=== PATIENT | female | born 2000 | race Hispanic/Latino ===

== ENCOUNTER 2018-10-02 01:20 | Inpatient (IN) | payer SELFPAY ==
[2018-10-02] MEDS ORDERED: NACL 0.9% 1000 ML 1,000 ML IV ONE ×3 (01:46→12:37)
[2018-10-02 02:01] LABS: Hematocrit 48.3 % (30.3-42.9); Hemoglobin 15.2 gm/dl (10.1-14.3); Mean Corpuscular HGB Conc 31 % (30-34); Mean Corpuscular Volume 90 fl (79-97); Platelet Count 449 K/mm3 (140-440); Red Blood Count 5.39 M/mm3 (3.65-5.03); Red Cell Distribution Width 14.8 % (13.2-15.2)
[2018-10-02 02:21] LABS: Albumin 5.1 g/dL (3.9-5); Calcium 10.5 mg/dL (8.4-10.2)
[2018-10-02] MEDS ORDERED: SUBLIMAZE IV ONE (02:25)
[2018-10-02] MEDS ORDERED: ZOFRAN IV ONE (02:25)
--- NOTE | 2018-10-02 02:32 | Emergency Department Report ---
HPI - General Chief Complaint: Hyperglycemia Time Seen by Provider: 10/02/18 02:20 - [facility] HPI: Room 1 The patient is a 17-year-old female presented with the chief complaint of nausea and vomiting. The patient states this morning she developed intractable nausea and vomiting began to feel dehydrated. Patient complains of soreness to her ribs from frequent vomiting and headache. The patient found to be hyperglycemic earlier today and received 8 units of insulin at 15:00. At 21:00 the patient received another 5 units of insulin but then came to the emergency department. Patient gives her rib pain score of 8/10. Family checked the patient's urine at home and found large ketones Location: [See above] Duration: [See above] Quality: Nausea Severity: [See above] Modifying factors: [see above] Context: [see above] Mode of transportation: [not driving] ED Past Medical Hx - Past Medical History Previous Medical History?: Yes Hx Diabetes: Yes Additional medical history: Hypothyroid - Surgical History Past Surgical History?: No - Family History Family history: no significant - Social History Smoking Status: Never Smoker Substance Use Type: None (denies illicit drug use) ED Review of Systems ROS: Stated complaint: DIABETIC COMPLICATIONS Other details as noted in HPI Constitutional: no symptoms reported Eyes: denies: eye pain ENT: denies: throat pain Respiratory: no symptoms reported Cardiovascular: denies: chest pain Endocrine: other (ketonuria) Gastrointestinal: nausea, vomiting. denies: abdominal pain Genitourinary: denies: dysuria Musculoskeletal: myalgia Neurological: headache Physical Exam - Physical Exam Vital Signs: Vital Signs 10/02/18 01:21 Temperature 98.0 F Pulse Rate 138 H Respiratory 22 Rate Blood Pressure 122/89 O2 Sat by Pulse 99 Oximetry Physical Exam: GENERAL: The patient is well-developed well-nourished female lying on stretcher appearing to be in mild discomfort. [] HEENT: Normocephalic. Atraumatic. Extraocular motions are intact. NECK: Supple. Trachea midline CHEST/LUNGS: Clear to auscultation. There is no respiratory distress noted. HEART/CARDIOVASCULAR: Regular. There is tachycardia. There is no gallop rub or murmur. ABDOMEN: Abdomen is soft, nontender. Patient has normal bowel sounds. There is no abdominal distention. SKIN: There is no rash. There is no edema. There is no diaphoresis. NEURO: The patient is awake, alert, and oriented. The patient is cooperative. The patient has normal speech MUSCULOSKELETAL: There is no evidence of acute injury. ED Course Vital Signs 10/02/18 01:21 Temperature 98.0 F Pulse Rate 138 H Respiratory 22 Rate Blood Pressure 122/89 O2 Sat by Pulse 99 Oximetry - EJ/Peripheral Line Neck R Indications: nurses unable to establis Skin Cleansed in Sterile Fashion: Yes Size: 20 Dressing Placed: Tegaderm Patient Tolerated Procedure: well, no complications ED Medical Decision Making - Lab Data Result diagrams: 10/02/18 01:47 10/02/18 01:47 Laboratory Tests 10/02/18 10/02/18 10/02/18 01:29 01:47 01:47 WBC 22.6 H RBC 5.39 H Hgb 15.2 H Hct 48.3 H MCV 90 MCH 28 MCHC 31 RDW 14.8 Plt Count 449 H Seg Neutrophils % Material Handler VBG pH Sodium 134 L Potassium 5.7 H Chloride 95.0 L Carbon Dioxide 7 L* Anion Gap 39 BUN 20 H Creatinine 1.3 H Estimated GFR 53 BUN/Creatinine Ratio 15 Glucose 376 H POC Glucose 288 H Calcium 10.5 H Total Bilirubin 0.50 AST 17 ALT 28 Alkaline Phosphatase 129 Total Protein 9.5 H Albumin 5.1 H Albumin/Globulin Ratio 1.2 Lipase 72 H HCG, Qual 10/02/18 10/02/18 01:47 01:47 WBC RBC Hgb Hct MCV MCH MCHC RDW Plt Count Seg Neutrophils % VBG pH 7.118 L* Sodium Potassium Chloride Carbon Dioxide Anion Gap BUN Creatinine Estimated GFR BUN/Creatinine Ratio Glucose POC Glucose Calcium Total Bilirubin AST ALT Alkaline Phosphatase Total Protein Albumin Albumin/Globulin Ratio Lipase HCG, Qual Negative - EKG Data -: EKG Interpreted by Me EKG shows normal: sinus rhythm Rate: tachycardia (119 bpm) - EKG Data When compared to previous EKG there are: previous EKG unavailable Interpretation: other (no ischemic changes seen) - Differential Diagnosis DKA, gastritis, Critical care attestation.: If time is entered above; I have spent that time in minutes in the direct care of this critically ill patient, excluding procedure time. ED Disposition Clinical Impression: DKA (diabetic ketoacidoses) Disposition: OP ADMIT IP TO THIS HOSP Is pt being admited?: Yes Does the pt Need Aspirin: No Condition: Serious Instructions: Diabetic Ketoacidosis (ED) Time of Disposition: 02:35 (hospitalist paged (Dr Camacho))
[2018-10-02] MEDS ORDERED: D50W (25GM) Syringe IV PRN ×2 (02:33→07:17)
[2018-10-02] MEDS ORDERED: MORPHINE IV PRN (03:19)
[2018-10-02] MEDS ORDERED: ZOFRAN IV PRN ×2 (03:19→12:36)
[2018-10-02] MEDS ORDERED: SODIUM CHLORIDE FLUSH SYRINGE 10 ML IV PRN (03:19)
[2018-10-02] MEDS ORDERED: TYLENOL PO PRN (03:19)
--- NOTE | 2018-10-02 03:38 | History and Physical Report ---
History of Present Illness Date of examination: 10/02/18 Date of admission: 10/02/2018 Chief complaint: Nausea and vomiting History of present illness: Ms. De Leon is a 17 y.o. female with history of insulin-dependent diabetes and hypothyroidism who presents to [facility] with c/o n/v, headache for the past day. Complains of soreness in her ribs from frequent vomiting. Patient states that around 10 AM yesterday morning she began to experience uncontrollable nausea and vomiting, which was accompanied by headache. She describes her headache as aching and relates that 12/30 . Her family checked her urine at home and it was positive for large ketones. She checked her blood sugar twice, once around 3 PM and again at 9 PM. Both times she was noted to be hyperglycemic and admits to taking sliding scale correction (approximately a total of 12units total). She normally takes 36 units of Lantus every night, but denies taking last night. Her family is present at the bedside and has assisted in history taking. Denies fever, hemoptysis, diarrhea, or recent sick contact Past History Past Medical History: diabetes (insulin-dependent), hypothyroidism Past Surgical History: No surgical history Social history: lives with family Family history: no significant family history Medications and Allergies Allergies Allergy/AdvReac Type Severity Reaction Status Date / Time No Known Allergies Allergy Verified 10/02/18 01:25 Active Meds: Active Medications Acetaminophen (Tylenol) 650 mg PO Q4H PRN PRN Reason: Pain MILD(1-3)/Fever >100.5/ANN Dextrose (D50w (25gm) Syringe) 0 ml IV ONCE PRN PRN Reason: Hypoglycemia Enoxaparin Sodium (Lovenox) 30 mg SUB-Q [facility]DAY [facility] Insulin Human Regular 100 (units/ Sodium Chloride) 100 mls @ 7 mls/hr IV TITR MARQUITA; Protocol Sodium Chloride (Nacl 0.9% 1000 Ml) 1,000 mls @ 200 mls/hr IV DIRECT MARQUITA Morphine Sulfate (Morphine) 2 mg IV Q4H PRN PRN Reason: Pain, Moderate (4-6) Stop: 10/03/18 23:59 Ondansetron HCl (Zofran) 4 mg IV Q8H PRN PRN Reason: Nausea And Vomiting Sodium Chloride (Sodium Chloride Flush Syringe 10 Ml) 10 ml IV BID MARQUITA Sodium Chloride (Sodium Chloride Flush Syringe 10 Ml) 10 ml IV PRN PRN PRN Reason: LINE FLUSH Review of Systems All systems: negative (reviewed and no additional remarkable complaints except as noted below) Constitutional: fatigue, weakness Ears, nose, mouth and throat: headache Gastrointestinal: nausea, vomiting Musculoskeletal: other (soreness to her ribs from uncontrollable vomiting) Exam - Physical Exam Narrative exam: Physical exam General appearance: Present: Mild distress, well-nourished, alert and oriented 3 - EENT Eyes: Present: PERRL, EOM intact ENT: hearing intact, normal dentition - Neck Neck: Present: supple, normal ROM - Respiratory Respiratory effort: Non-labored Respiratory: Clear throughout) - Cardiovascular Heart rate: 119 (bpm) Rhythm: Sinus tachycardia Heart Sounds: Present: S1 & S2. Absent: rub, click - Extremities Extremities: no ischemia, pulses intact, - Peripheral Assessment Peripheral Pulses: within normal limits - Abdominal General gastrointestinal: soft, non-tender, normal bowel sounds - Integumentary Integumentary: Present: warm, dry - Musculoskeletal Musculoskeletal: Able to move all extremities - Psychiatric Psychiatric: cooperative - Constitutional Vitals: Temp Pulse Resp BP Pulse Ox 98.0 F 115 H 20 124/72 100 10/02/18 01:21 10/02/18 03:31 10/02/18 03:31 10/02/18 03:31 10/02/18 03:31 Results - Labs CBC & Chem 7: 10/02/18 01:47 10/02/18 01:47 Labs: Laboratory Last Values WBC 22.6 K/mm3 (4.5-11.0) H 10/02/18 01:47 RBC 5.39 M/mm3 (3.65-5.03) H 10/02/18 01:47 Hgb 15.2 gm/dl (10.1-14.3) H 10/02/18 01:47 Hct 48.3 % (30.3-42.9) H 10/02/18 01:47 MCV 90 fl (79-97) 10/02/18 01:47 MCH 28 pg (28-32) 10/02/18 01:47 MCHC 31 % (30-34) 10/02/18 01:47 RDW 14.8 % (13.2-15.2) 10/02/18 01:47 Plt Count 449 K/mm3 (140-440) H 10/02/18 01:47 Seg Neutrophils % Ecommerce Manager 10/02/18 01:47 VBG pH 7.118 (7.320-7.420) L* 10/02/18 01:47 Sodium 134 mmol/L (137-145) L 10/02/18 01:47 Potassium 5.7 mmol/L (3.6-5.0) H 10/02/18 01:47 Chloride 95.0 mmol/L (98-107) L 10/02/18 01:47 Carbon Dioxide 7 mmol/L (22-30) L* 10/02/18 01:47 39 mmol/L 10/02/18 01:47 BUN 20 mg/dL (7-17) H 10/02/18 01:47 1.3 mg/dL (0.7-1.2) H 10/02/18 01:47 Estimated GFR 53 ml/min 10/02/18 01:47 15 % 10/02/18 01:47 Glucose 376 mg/dL (65-100) H 10/02/18 01:47 POC Glucose 288 (70-105) H 10/02/18 01:29 Calcium 10.5 mg/dL (8.4-10.2) H 10/02/18 01:47 0.50 mg/dL (0.1-1.2) 10/02/18 01:47 AST 17 units/L (5-40) 10/02/18 01:47 ALT 28 units/L (7-56) 10/02/18 01:47 129 units/L (35-129) 10/02/18 01:47 9.5 g/dL (6.3-8.2) H 10/02/18 01:47 5.1 g/dL (3.9-5) H 10/02/18 01:47 1.2 % 10/02/18 01:47 72 units/L (13-60) H 10/02/18 01:47 HCG, Qual Negative (Negative) 10/02/18 01:47 Short CBC 10/02/18 Range/Units 01:47 WBC 22.6 H (4.5-11.0) K/mm3 Hgb 15.2 H (10.1-14.3) gm/dl Hct 48.3 H (30.3-42.9) % Plt Count 449 H (140-440) K/mm3 BMP 10/02/18 01:47 Sodium 134 L Potassium 5.7 H Chloride 95.0 L Carbon Dioxide 7 L* BUN 20 H Creatinine 1.3 H Glucose 376 H Calcium 10.5 H Liver Function 10/02/18 Range/Units 01:47 Total Bilirubin 0.50 (0.1-1.2) mg/dL AST 17 (5-40) units/L ALT 28 (7-56) units/L Alkaline Phosphatase 129 (35-129) units/L Albumin 5.1 H (3.9-5) g/dL - Imaging and Cardiology EKG: image reviewed (sinus tachycardia at 119 bpm) Chest x-ray: report reviewed (no acute cardiopulmonary abnormalities) Assessment and Plan Assessment and plan: Ms. De Leon is a 17 y.o. female with history of insulin-dependent diabetes and hypothyroidism who presents to [facility] with c/o n/v, headache for the past day. Complains of soreness in her ribs from frequent vomiting. She is an established patient of [facility]. Patient is found to be in diabetic ketoacidosis, pH 7.11, anion gap 39. Patient has mild hyponatremia with sodium of 134. She is hyperkalemic with potassium of 5.7. Leukocytosis with WBC 22.6. Chest x-ray unrevealing for acute cardiopulmonary abnormalities. She will be admitted to the ICU. DKA protocol has been initiated. has been consulted regarding an ICU admission. DKA Leukocytosis; unknown etiology Hyponatremia- mild Hyperkalemia KALYAN Plan: Continue supportive care Initiate DKA protocol Monitor electrolytes Monitor CBC May consider Kayexalate if potassium remains elevated when rechecked in 2 hours When necessary Zofran for nausea TSH, T4, and Free T4 labs pending IVF NS 200mL/hr DVT PPX on Lovenox Home med reconciliation pending Advance Directives: No VTE prophylaxis?: Chemical Plan of care discussed with patient/family: Yes
--- NOTE | 2018-10-02 03:42 | XRay Report ---
PROCEDURE: XR CHEST 1V AP TECHNIQUE: Chest radiograph single view. HISTORY: leukocytosis COMPARISONS: None . FINDINGS: Heart: Normal. Mediastinum/Vessels: Normal. Lungs/Pleural space: Normal. Bony thorax: No acute osseous abnormality. Life support devices: None. IMPRESSION: No acute cardiopulmonary abnormality. This document is electronically signed by Ale Dockery DO., Oct 02 2018 03:39:55 AM ET
[2018-10-02] MEDS: HumuLIN R 100 UNITS in NACL 0.9% 99 ML IV SCH ×2 (04:00→05:10)
[2018-10-02] MEDS ORDERED: NACL 0.9% 1000 ML 1,000 ML IV SCH (04:00)
[2018-10-02 04:31] LABS: BUN/Creatinine Ratio 18; Blood Urea Nitrogen 18 mg/dL (7-17); Calcium 8.6 mg/dL (8.4-10.2); Hemolysis Index 1
[2018-10-02 04:49] LABS: Bilirubin,Urine NEG (Negative); Blood,Urine SM (Negative); Color,Urine Straw (Yellow); Mucus,Urine FEW /HPF; Urobilinogen,Urine < 2.0 mg/dL (<2.0)
[2018-10-02 05:16] LABS: Band Neutrophils # (Manual) 0.7 K/mm3; Basophils % (Manual) 0 % (0.0-1.8); Eosinophils % (Manual) 0 % (0.0-4.3); Platelet Estimate Consistent w Auto; Total Cells Counted 100
[2018-10-02 05:25] LABS: HCG Qualitative,Urine Negative (Negative)
[2018-10-02 05:48] LABS: Hemoglobin 13.5 gm/dl (10.1-14.3); Mean Corpuscular HGB Conc 32 % (30-34); Mean Corpuscular Volume 91 fl (79-97); Platelet Count 356 K/mm3 (140-440); Red Blood Count 4.75 M/mm3 (3.65-5.03); Red Cell Distribution Width 14.8 % (13.2-15.2)
[2018-10-02 06:11] LABS: BUN/Creatinine Ratio 16; Blood Urea Nitrogen 16 mg/dL (7-17); Calcium 8.8 mg/dL (8.4-10.2); Hemolysis Index 110
[2018-10-02] MEDS ORDERED: HumuLIN R 100 UNITS in NACL 0.9% 99 ML IV SCH (08:00)
[2018-10-02 08:41] LABS: Basophils % (Manual) 0 % (0.0-1.8); Eosinophils % (Manual) 0 % (0.0-4.3); Promyelocytes # (Manual) 0.2 K/mm3; Total Cells Counted 100
[2018-10-02 08:47] LABS: Platelet Estimate Consistent w Auto; RBC Morphology Normal
[2018-10-02] MEDS: D5/0.45NS 1,000 ML IV SCH ×2 (09:03→16:44)
[2018-10-02] MEDS: LOVENOX SUB-Q SCH (09:03)
[2018-10-02] MEDS: SODIUM CHLORIDE FLUSH SYRINGE 10 ML IV SCH ×2 (09:04→22:07)
[2018-10-02 09:10] LABS: BUN/Creatinine Ratio 14; Blood Urea Nitrogen 13 mg/dL (7-17); Calcium 8.8 mg/dL (8.4-10.2); Hemolysis Index 5
[2018-10-02] MEDS ORDERED: LOVENOX SUB-Q SCH (10:00)
[2018-10-02] MEDS ORDERED: PNEUMOVAX 23 IM ONE (12:00)
[2018-10-02] MEDS ORDERED: PHENERGAN PR PRN (12:36)
[2018-10-02] MEDS ORDERED: REGLAN IV PRN (12:36)
--- NOTE | 2018-10-02 12:38 | Progress Note ---
Assessment and Plan Assessment and plan: 17-year-old woman with history of type 1 diabetes who presents with nausea vomiting who was admitted for DKA chest x-ray; no acute findings Diagnosis DKA Intractable nausea vomiting SIRS Hyperkalemia Hypotension Dehydration. Diabetic gastroparesis? Plan Insulin drip, IV fluids, patient is still acidotic Hypotension likely due to hypovolemia, IV bolus of IV fluids -Antiemetics, bowel rest transfer attacks Thyroid function tests within normal limits Phosphorus, magnesium and potassium within normal limits DVT prophylaxis with early ambulation Critical care time 35 minutes History Interval history: Review of systems Constitutional: No fevers, no malaise, no joint pains CVS: No chest pain, no orthopnea, no dyspnea on exertion, no pedal edema GI: No abdominal pain, no diarrhea, no vomiting, no constipation Respiratory: no wheezing, no coughing Hospitalist Physical - Physical exam Narrative exam: General.: Appears well, no distress, nontoxic HEENT: Moist mucous membranes, extraocular muscles intact, no lymphadenopathy Neck: supple Cardiac: S1-S2 heard Lungs: clear to auscultation bilaterally Abdomen: soft , nontender, nondistended, bowel sounds positive Extremities: no edema clubbing or cyanosis Skin: no rash or lesions Neurologic: no gross focal deficits Psych: calm, and cooperative - Constitutional Vitals: Temp Pulse Resp BP Pulse Ox 98.5 F 108 H 15 76/35 99 10/02/18 08:00 10/02/18 12:00 10/02/18 12:00 10/02/18 12:00 10/02/18 12:00 Results - Labs CBC & Chem 7: 10/02/18 05:36 10/02/18 08:31 Labs: Laboratory Last Values WBC 20.7 K/mm3 (4.5-11.0) H 10/02/18 05:36 RBC 4.75 M/mm3 (3.65-5.03) 10/02/18 05:36 Hgb 13.5 gm/dl (10.1-14.3) 10/02/18 05:36 Hct 43.0 % (30.3-42.9) H 10/02/18 05:36 MCV 91 fl (79-97) 10/02/18 05:36 MCH 29 pg (28-32) 10/02/18 05:36 MCHC 32 % (30-34) 10/02/18 05:36 RDW 14.8 % (13.2-15.2) 10/02/18 05:36 Plt Count 356 K/mm3 (140-440) 10/02/18 05:36 Add Manual Diff Complete 10/02/18 05:36 Total Counted 100 10/02/18 05:36 Seg Neutrophils % Java Development Team Lead 10/02/18 01:47 Seg Neuts % (Manual) 88.0 % (40.0-70.0) H 10/02/18 05:36 0 % 10/02/18 05:36 9.0 % (13.4-35.0) L 10/02/18 05:36 Reactive Lymphs % (Man) 0 % 10/02/18 05:36 2.0 % (0.0-7.3) 10/02/18 05:36 0 % (0.0-4.3) 10/02/18 05:36 0 % (0.0-1.8) 10/02/18 05:36 0 % 10/02/18 05:36 0 % 10/02/18 05:36 1.0 % 10/02/18 05:36 0 % 10/02/18 05:36 Nucleated RBC % Not Reportable 10/02/18 05:36 Seg Neutrophils # Man 18.2 K/mm3 (1.8-7.7) H 10/02/18 05:36 Band Neutrophils # 0.0 K/mm3 10/02/18 05:36 1.9 K/mm3 (1.2-5.4) 10/02/18 05:36 Abs React Lymphs (Man) 0.0 K/mm3 10/02/18 05:36 0.4 K/mm3 (0.0-0.8) 10/02/18 05:36 0.0 K/mm3 (0.0-0.4) 10/02/18 05:36 0.0 K/mm3 (0.0-0.1) 10/02/18 05:36 0.0 K/mm3 10/02/18 05:36 0.0 K/mm3 10/02/18 05:36 0.2 K/mm3 10/02/18 05:36 Blast Cells # 0.0 K/mm3 10/02/18 05:36 WBC Morphology Not Reportable 10/02/18 05:36 Hypersegmented Neuts Not Reportable 10/02/18 05:36 Hyposegmented Neuts Not Reportable 10/02/18 05:36 Hypogranular Neuts Not Reportable 10/02/18 05:36 Not Reportable 10/02/18 05:36 Not Reportable 10/02/18 05:36 Not Reportable 10/02/18 05:36 Not Reportable 10/02/18 05:36 Not Reportable 10/02/18 05:36 Not Reportable 10/02/18 05:36 Consistent w auto 10/02/18 05:36 Not Reportable 10/02/18 05:36 Plt Clumps, EDTA Not Reportable 10/02/18 05:36 Not Reportable 10/02/18 05:36 Not Reportable 10/02/18 05:36 Not Reportable 10/02/18 05:36 Plt Morphology Comment Not Reportable 10/02/18 05:36 RBC Morphology Normal 10/02/18 05:36 Dimorphic RBCs Not Reportable 10/02/18 05:36 Not Reportable 10/02/18 05:36 Not Reportable 10/02/18 05:36 Not Reportable 10/02/18 05:36 Not Reportable 10/02/18 05:36 Not Reportable 10/02/18 05:36 Not Reportable 10/02/18 05:36 Not Reportable 10/02/18 05:36 Not Reportable 10/02/18 05:36 Not Reportable 10/02/18 05:36 Not Reportable 10/02/18 05:36 Not Reportable 10/02/18 05:36 Not Reportable 10/02/18 05:36 Not Reportable 10/02/18 05:36 Not Reportable 10/02/18 05:36 Not Reportable 10/02/18 05:36 Not Reportable 10/02/18 05:36 Not Reportable 10/02/18 05:36 Not Reportable 10/02/18 05:36 Not Reportable 10/02/18 05:36 Acanthocytes (Spur) Not Reportable 10/02/18 05:36 Rouleaux Not Reportable 10/02/18 05:36 Not Reportable 10/02/18 05:36 Not Reportable 10/02/18 05:36 Not Reportable 10/02/18 05:36 Not Reportable 10/02/18 05:36 Hem Pathologist Commnt No 10/02/18 05:36 VBG pH 7.118 (7.320-7.420) L* 10/02/18 01:47 Sodium 139 mmol/L (137-145) 10/02/18 08:31 Potassium 4.4 mmol/L (3.6-5.0) 10/02/18 08:31 Chloride 110.0 mmol/L (98-107) H 10/02/18 08:31 Carbon Dioxide 11 mmol/L (22-30) L 10/02/18 08:31 22 mmol/L 10/02/18 08:31 BUN 13 mg/dL (7-17) 10/02/18 08:31 0.9 mg/dL (0.7-1.2) 10/02/18 08:31 Estimated GFR > 60 ml/min 10/02/18 08:31 14 % 10/02/18 08:31 Glucose 156 mg/dL (65-100) H 10/02/18 08:31 POC Glucose 177 (70-105) H 10/02/18 07:46 Calcium 8.8 mg/dL (8.4-10.2) 10/02/18 08:31 Phosphorus 2.60 mg/dL (2.5-4.5) D 10/02/18 08:31 Magnesium 2.20 mg/dL (1.7-2.3) 10/02/18 08:31 0.50 mg/dL (0.1-1.2) 10/02/18 01:47 AST 17 units/L (5-40) 10/02/18 01:47 ALT 28 units/L (7-56) 10/02/18 01:47 129 units/L (35-129) 10/02/18 01:47 9.5 g/dL (6.3-8.2) H 10/02/18 01:47 5.1 g/dL (3.9-5) H 10/02/18 01:47 1.2 % 10/02/18 01:47 72 units/L (13-60) H 10/02/18 01:47 TSH 1.300 mlU/mL (0.270-4.200) 10/02/18 03:55 Free T4 1.12 ng/dL (0.76-1.46) 10/02/18 03:55 6.8 ug/dL (4.0-12.0) 10/02/18 03:55 HCG, Qual Negative (Negative) 10/02/18 01:47 Straw (Yellow) 10/02/18 04:35 Clear (Clear) 10/02/18 04:35 5.0 (5.0-7.0) 10/02/18 04:35 Ur Specific [place] 1.018 (1.003-1.030) 10/02/18 04:35 30 mg/dl mg/dL (Negative) 10/02/18 04:35 >=500 mg/dL (Negative) 10/02/18 04:35 80 mg/dL (Negative) 10/02/18 04:35 Sm (Negative) 10/02/18 04:35 Neg (Negative) 10/02/18 04:35 Neg (Negative) 10/02/18 04:35 < 2.0 mg/dL (<2.0) 10/02/18 04:35 Ur Leukocyte Esterase Neg (Negative) 10/02/18 04:35 2.0 /HPF (0.0-6.0) 10/02/18 04:35 3.0 /HPF (0.0-6.0) 10/02/18 04:35 U Epithel Cells (Auto) 2.0 /HPF (0-13.0) 10/02/18 04:35 Few /HPF 10/02/18 04:35 Urine HCG, Qual Negative (Negative) 10/02/18 04:35 Active Medications - Current Medications Current Medications: Generic Name Dose Route Start Last Admin Trade Name Freq PRN Reason Stop Dose Admin Acetaminophen 650 mg 10/02/18 03:19 Tylenol PO Q4H PRN Pain MILD(1-3)/Fever >100.5/ANN Dextrose 0 ml 10/02/18 07:17 D50w (25gm) Syringe IV PRN PRN Hypoglycemia Enoxaparin Sodium 40 mg 10/02/18 10:00 10/02/18 09:03 Lovenox SUB-Q 40 mg QDAY@1000 MARQUITA Administration Sodium Chloride 1,000 mls @ 200 mls/hr 10/02/18 04:00 10/02/18 09:05 Nacl 0.9% 1000 Ml IV Infused DIRECT MARQUITA Infusion Insulin Human Regular 100 100 mls @ 1 mls/hr 10/02/18 08:00 10/02/18 09:00 units/ Sodium Chloride IV 1.5 units/hr TITR MARQUITA 1.5 mls/hr Titration Protocol 1 UNITS/HR Dextrose/Sodium Chloride 1,000 mls @ 125 mls/hr 10/02/18 09:00 10/02/18 09:03 D5/0.45ns IV 125 mls/hr DIRECT MARQUITA Administration Sodium Chloride 1,000 mls @ 999 mls/hr 10/02/18 12:37 Nacl 0.9% 1000 Ml IV 10/02/18 13:37 BOLUS ONE Metoclopramide HCl 10 mg 10/02/18 12:36 Reglan IV Q6H PRN Nausea And Vomiting Morphine Sulfate 2 mg 10/02/18 03:19 Morphine IV 10/03/18 23:59 Q4H PRN Pain, Moderate (4-6) Ondansetron HCl 4 mg 10/02/18 12:36 Zofran IV Q4H PRN Nausea And Vomiting Promethazine HCl 25 mg 10/02/18 12:36 Phenergan PA Q6H PRN Nausea And Vomiting Sodium Chloride 10 ml 10/02/18 10:00 10/02/18 09:04 Sodium Chloride Flush Syringe 10 Ml IV 10 ml BID MARQUITA Administration Sodium Chloride 10 ml 10/02/18 03:19 Sodium Chloride Flush Syringe 10 Ml IV PRN PRN LINE FLUSH
--- NOTE | 2018-10-02 13:40 | Consultation ---
History of Present Illness Consult date: 10/02/18 Requesting physician: MIL BRAMBILA Reason for consult: other (DKA) History of present illness: Patient admitted with at least 1 day of N/V and poor PO intake. No chest pain, fevers, chills, SOB, wheezing, cough, diarrhea, abd pain. Arrived to ED in DKA. Has been borderline hypotensive getting fluid boluses. Feels better since admit. Past History Past Medical History: diabetes (insulin-dependent), hypothyroidism Past Surgical History: No surgical history Social history: lives with family, full code. denies: smoking, alcohol abuse, prescription drug abuse, IV drug use Family history: no significant family history Medications and Allergies Allergies Allergy/AdvReac Type Severity Reaction Status Date / Time No Known Allergies Allergy Verified 10/02/18 01:25 Home Medications Medication Instructions Recorded Confirmed Last Taken Type Insulin Glargine,Hum.rec.anlog 37 unit SQ QDAY 10/02/18 10/02/18 10/01/18 History [Basaglar Kwikpen U-100] Insulin Lispro [Humalog Kwikpen 100 unit SQ PRN 10/02/18 10/02/18 10/01/18 History U-100] Active Meds: Active Medications Acetaminophen (Tylenol) 650 mg PO Q4H PRN PRN Reason: Pain MILD(1-3)/Fever >100.5/NAN Dextrose (D50w (25gm) Syringe) 0 ml IV PRN PRN PRN Reason: Hypoglycemia Enoxaparin Sodium (Lovenox) 40 mg SUB-Q QDAY@1000 MARQUITA Last Admin: 10/02/18 09:03 Dose: 40 mg Documented by: Sodium Chloride (Nacl 0.9% 1000 Ml) 1,000 mls @ 200 mls/hr IV DIRECT MARQUITA Last Infusion: 10/02/18 09:05 Dose: Infused Documented by: Insulin Human Regular 100 (units/ Sodium Chloride) 100 mls @ 1 mls/hr IV TITR MARQUITA; Protocol Last Titration: 10/02/18 12:55 Dose: 4 units/hr, 4 mls/hr Documented by: Dextrose/Sodium Chloride (D5/0.45ns) 1,000 mls @ 125 mls/hr IV DIRECT MARQUITA Last Admin: 10/02/18 09:03 Dose: 125 mls/hr Documented by: Sodium Chloride (Nacl 0.9% 1000 Ml) 1,000 mls @ 999 mls/hr IV BOLUS ONE Stop: 10/02/18 13:37 Metoclopramide HCl (Reglan) 10 mg IV Q6H PRN PRN Reason: Nausea And Vomiting Morphine Sulfate (Morphine) 2 mg IV Q4H PRN PRN Reason: Pain, Moderate (4-6) Stop: 10/03/18 23:59 Ondansetron HCl (Zofran) 4 mg IV Q4H PRN PRN Reason: Nausea And Vomiting Promethazine HCl (Phenergan) 25 mg MS Q6H PRN PRN Reason: Nausea And Vomiting Sodium Chloride (Sodium Chloride Flush Syringe 10 Ml) 10 ml IV BID MARQUITA Last Admin: 10/02/18 09:04 Dose: 10 ml Documented by: Sodium Chloride (Sodium Chloride Flush Syringe 10 Ml) 10 ml IV PRN PRN PRN Reason: LINE FLUSH Review of Systems All systems: negative Physical Examination Vital signs: Vital Signs Temp Pulse Resp BP Pulse Ox 98.0 F 138 H 22 122/89 99 10/02/18 01:21 10/02/18 01:21 10/02/18 01:21 10/02/18 01:21 10/02/18 01:21 Vital Signs - 24 hr 10/02/18 10/02/18 10/02/18 01:21 02:28 02:30 Temperature 98.0 F Pulse Rate 138 H 119 H 121 H Pulse Rate [ Left Radial] Respiratory 22 27 H 26 H Rate Blood Pressure 122/89 130/88 O2 Sat by Pulse 99 100 100 Oximetry 10/02/18 10/02/18 10/02/18 02:46 03:00 03:27 Temperature Pulse Rate 122 H 129 H 111 H Pulse Rate [ Left Radial] Respiratory 26 H 29 H 20 Rate Blood Pressure 130/88 134/87 O2 Sat by Pulse 100 100 100 Oximetry 10/02/18 10/02/18 10/02/18 03:31 03:45 04:01 Temperature Pulse Rate 115 H 114 H 109 H Pulse Rate [ Left Radial] Respiratory 20 20 20 Rate Blood Pressure 124/72 134/87 117/68 O2 Sat by Pulse 100 100 100 Oximetry 10/02/18 10/02/18 10/02/18 04:15 04:46 04:48 Temperature 98.9 F Pulse Rate 111 H 122 H Pulse Rate [ Left Radial] Respiratory 19 15 Rate Blood Pressure 124/72 O2 Sat by Pulse 100 Oximetry 10/02/18 10/02/18 10/02/18 05:00 05:11 06:01 Temperature Pulse Rate 120 H 125 H 123 H Pulse Rate [ 139 H Left Radial] Respiratory 21 19 21 Rate Blood Pressure 134/73 126/75 118/68 O2 Sat by Pulse 99 98 99 Oximetry 10/02/18 10/02/18 10/02/18 07:00 08:00 09:00 Temperature 98.5 F Pulse Rate 112 H 121 H 120 H Pulse Rate [ 108 H 106 H Left Radial] Respiratory 20 16 15 Rate Blood Pressure 101/56 86/42 92/41 O2 Sat by Pulse 99 98 98 Oximetry 10/02/18 10/02/18 10/02/18 10:00 11:00 12:00 Temperature 98.4 F Pulse Rate 117 H 102 H 108 H Pulse Rate [ Left Radial] Respiratory 14 15 15 Rate Blood Pressure 96/53 96/48 76/35 O2 Sat by Pulse 99 98 99 Oximetry General appearance: no acute distress, alert Eyes: non-icteric ENT: oropharynx moist Neck: supple Effort: normal Ascultation: Bilateral: clear Cardiovascular: other (tachy, RR; no mrg) Gastrointestinal: normoactive bowel sounds, soft, non-tender, non-distended Integumentary: normal Extremities: no cyanosis, no edema, pink and warm Musculoskeletal: no deformities normal mental status, non-focal exam, pupils equal and round, CN II-XII normal mood appropriate, affect normal Results - Laboratory Findings CBC and BMP: 10/02/18 05:36 10/02/18 08:31 Abnormal lab findings: Abnormal Labs 10/02/18 10/02/18 10/02/18 01:29 01:47 01:47 WBC 22.6 H RBC 5.39 H Hgb 15.2 H Hct 48.3 H Plt Count 449 H Seg Neuts % (Manual) 85.0 H Lymphocytes % (Manual) 4.0 L Monocytes % (Manual) 8.0 H Seg Neutrophils # Man 19.2 H Lymphocytes # (Manual) 0.9 L Monocytes # (Manual) 1.8 H VBG pH Sodium 134 L Potassium 5.7 H Chloride 95.0 L Carbon Dioxide 7 L* BUN 20 H Creatinine 1.3 H Glucose 376 H POC Glucose 288 H Calcium 10.5 H Total Protein 9.5 H Albumin 5.1 H Lipase 72 H 10/02/18 10/02/18 10/02/18 01:47 03:55 03:57 WBC RBC Hgb Hct Plt Count Seg Neuts % (Manual) Lymphocytes % (Manual) Monocytes % (Manual) Seg Neutrophils # Man Lymphocytes # (Manual) Monocytes # (Manual) VBG pH 7.118 L* Sodium 135 L Potassium 5.6 H Chloride Carbon Dioxide 5 L* BUN 18 H Creatinine Glucose 380 H POC Glucose 318 H Calcium Total Protein Albumin Lipase 10/02/18 10/02/18 10/02/18 05:10 05:36 05:36 WBC 20.7 H RBC Hgb Hct 43.0 H Plt Count Seg Neuts % (Manual) 88.0 H Lymphocytes % (Manual) 9.0 L Monocytes % (Manual) Seg Neutrophils # Man 18.2 H Lymphocytes # (Manual) Monocytes # (Manual) VBG pH Sodium Potassium 5.5 H Chloride 108.1 H Carbon Dioxide 6 L* BUN Creatinine Glucose 267 H POC Glucose 295 H Calcium Total Protein Albumin Lipase 10/02/18 10/02/18 10/02/18 06:14 07:07 07:46 WBC RBC Hgb Hct Plt Count Seg Neuts % (Manual) Lymphocytes % (Manual) Monocytes % (Manual) Seg Neutrophils # Man Lymphocytes # (Manual) Monocytes # (Manual) VBG pH Sodium Potassium Chloride Carbon Dioxide BUN Creatinine Glucose POC Glucose 258 H 206 H 177 H Calcium Total Protein Albumin Lipase 10/02/18 10/02/18 08:31 12:51 WBC RBC Hgb Hct Plt Count Seg Neuts % (Manual) Lymphocytes % (Manual) Monocytes % (Manual) Seg Neutrophils # Man Lymphocytes # (Manual) Monocytes # (Manual) VBG pH Sodium Potassium Chloride 110.0 H Carbon Dioxide 11 L BUN Creatinine Glucose 156 H POC Glucose 183 H Calcium Total Protein Albumin Lipase - Diagnostic Findings Chest x-ray: report reviewed, image reviewed (clear lungs) Assessment and Plan Imp: 1. DKA 2. Volume depletion -> hypotension and KALYAN 3. N/V 4. SIRS, r/o sepsis Rec: 1. Insulin drip, now on D5 1/2 NS; would continue to bolus with NS for hypot ension as she is likely still dry 2. UA, CXR negative; check blood cultures; tachycardia/hypotension likely due to #2 above and leukocytosis could be due to hemoconcentration 3. Cont. ICU care until anion gap closes Plan of care reviewed w/ patient/mother, they understand/agree Thanks for the consult.
[2018-10-02 14:33] LABS: BUN/Creatinine Ratio 14; Blood Urea Nitrogen 11 mg/dL (7-17); Calcium 8.6 mg/dL (8.4-10.2); Hemolysis Index 24
[2018-10-02 16:20] LABS: BUN/Creatinine Ratio 16; Blood Urea Nitrogen 11 mg/dL (7-17); Calcium 8.5 mg/dL (8.4-10.2); Hemolysis Index 15
[2018-10-02] MEDS ORDERED: LEVOPHED DRIP 4 MG/NS 250 ML 4 MG/250 ML BAG IV SCH (21:00)
[2018-10-02] MEDS: HumaLOG SUB-Q SCH (22:04)
[2018-10-02] MEDS: NACL 0.9% 1000 ML 1,000 ML IV SCH (23:05)
[2018-10-02] MEDS ORDERED: LANTUS SUB-Q ONE (23:19)
[2018-10-03 00:09] LABS: BUN/Creatinine Ratio 14; Blood Urea Nitrogen 10 mg/dL (7-17); Calcium 8.3 mg/dL (8.4-10.2); Hemolysis Index 35
[2018-10-03] MEDS: HumaLOG SUB-Q SCH ×4 (02:00→17:16)
[2018-10-03] MEDS: NACL 0.9% 1000 ML 1,000 ML IV SCH ×3 (06:21→22:27)
[2018-10-03] MEDS: SODIUM CHLORIDE FLUSH SYRINGE 10 ML IV SCH ×2 (10:00→22:33)
[2018-10-03] MEDS ORDERED: INSULIN GLARGINE HUM REC ANLOG 37 UNIT SQ SCH (10:00)
[2018-10-03] MEDS: LOVENOX SUB-Q SCH (10:00)
[2018-10-03] MEDS ORDERED: LANTUS SUB-Q SCH ×2 (10:00→22:00)
--- NOTE | 2018-10-03 11:38 | Progress Note ---
Assessment and Plan Assessment and plan: 17-year-old woman with history of type 1 diabetes who presents with nausea vomiting who was admitted for DKA chest x-ray; no acute findings Diagnosis DKA Intractable nausea vomiting SIRS Hyperkalemia Hypotension Dehydration. Plan now off insulin drip, cont sq insulins hypotension resolved with ivf -Antiemetics, n/v now resolved Thyroid function tests within normal limits Phosphorus, magnesium and potassium within normal limits DVT prophylaxis with early ambulation History Interval history: Review of systems Constitutional: No fevers, no malaise, no joint pains CVS: No chest pain, no orthopnea, no dyspnea on exertion, no pedal edema GI: No abdominal pain, no diarrhea, no vomiting, no constipation Respiratory: no wheezing, no coughing Hospitalist Physical - Physical exam Narrative exam: General.: Appears well, no distress, nontoxic HEENT: Moist mucous membranes, extraocular muscles intact, no lymphadenopathy Neck: supple Cardiac: S1-S2 heard Lungs: clear to auscultation bilaterally Abdomen: soft , nontender, nondistended, bowel sounds positive Extremities: no edema clubbing or cyanosis Skin: no rash or lesions Neurologic: no gross focal deficits Psych: calm, and cooperative - Constitutional Vitals: Temp Pulse Resp BP Pulse Ox 97.9 F 97 H 15 116/70 100 10/03/18 07:54 10/03/18 11:00 10/03/18 11:00 10/03/18 11:00 10/03/18 11:00 Results - Labs CBC & Chem 7: 10/02/18 05:36 10/02/18 23:36 Labs: Laboratory Last Values WBC 20.7 K/mm3 (4.5-11.0) H 10/02/18 05:36 RBC 4.75 M/mm3 (3.65-5.03) 10/02/18 05:36 Hgb 13.5 gm/dl (10.1-14.3) 10/02/18 05:36 Hct 43.0 % (30.3-42.9) H 10/02/18 05:36 MCV 91 fl (79-97) 10/02/18 05:36 MCH 29 pg (28-32) 10/02/18 05:36 MCHC 32 % (30-34) 10/02/18 05:36 RDW 14.8 % (13.2-15.2) 10/02/18 05:36 Plt Count 356 K/mm3 (140-440) 10/02/18 05:36 Add Manual Diff Complete 10/02/18 05:36 Total Counted 100 10/02/18 05:36 Seg Neutrophils % [employer] 10/02/18 01:47 Seg Neuts % (Manual) 88.0 % (40.0-70.0) H 10/02/18 05:36 0 % 10/02/18 05:36 9.0 % (13.4-35.0) L 10/02/18 05:36 Reactive Lymphs % (Man) 0 % 10/02/18 05:36 2.0 % (0.0-7.3) 10/02/18 05:36 0 % (0.0-4.3) 10/02/18 05:36 0 % (0.0-1.8) 10/02/18 05:36 0 % 10/02/18 05:36 0 % 10/02/18 05:36 1.0 % 10/02/18 05:36 0 % 10/02/18 05:36 Nucleated RBC % Not Reportable 10/02/18 05:36 Seg Neutrophils # Man 18.2 K/mm3 (1.8-7.7) H 10/02/18 05:36 Band Neutrophils # 0.0 K/mm3 10/02/18 05:36 1.9 K/mm3 (1.2-5.4) 10/02/18 05:36 Abs React Lymphs (Man) 0.0 K/mm3 10/02/18 05:36 0.4 K/mm3 (0.0-0.8) 10/02/18 05:36 0.0 K/mm3 (0.0-0.4) 10/02/18 05:36 0.0 K/mm3 (0.0-0.1) 10/02/18 05:36 0.0 K/mm3 10/02/18 05:36 0.0 K/mm3 10/02/18 05:36 0.2 K/mm3 10/02/18 05:36 Blast Cells # 0.0 K/mm3 10/02/18 05:36 WBC Morphology Not Reportable 10/02/18 05:36 Hypersegmented Neuts Not Reportable 10/02/18 05:36 Hyposegmented Neuts Not Reportable 10/02/18 05:36 Hypogranular Neuts Not Reportable 10/02/18 05:36 Not Reportable 10/02/18 05:36 Not Reportable 10/02/18 05:36 Not Reportable 10/02/18 05:36 Not Reportable 10/02/18 05:36 Not Reportable 10/02/18 05:36 Not Reportable 10/02/18 05:36 Consistent w auto 10/02/18 05:36 Not Reportable 10/02/18 05:36 Plt Clumps, EDTA Not Reportable 10/02/18 05:36 Not Reportable 10/02/18 05:36 Not Reportable 10/02/18 05:36 Not Reportable 10/02/18 05:36 Plt Morphology Comment Not Reportable 10/02/18 05:36 RBC Morphology Normal 10/02/18 05:36 Dimorphic RBCs Not Reportable 10/02/18 05:36 Not Reportable 10/02/18 05:36 Not Reportable 10/02/18 05:36 Not Reportable 10/02/18 05:36 Not Reportable 10/02/18 05:36 Not Reportable 10/02/18 05:36 Not Reportable 10/02/18 05:36 Not Reportable 10/02/18 05:36 Not Reportable 10/02/18 05:36 Not Reportable 10/02/18 05:36 Not Reportable 10/02/18 05:36 Not Reportable 10/02/18 05:36 Not Reportable 10/02/18 05:36 Not Reportable 10/02/18 05:36 Not Reportable 10/02/18 05:36 Not Reportable 10/02/18 05:36 Not Reportable 10/02/18 05:36 Not Reportable 10/02/18 05:36 Not Reportable 10/02/18 05:36 Not Reportable 10/02/18 05:36 Acanthocytes (Spur) Not Reportable 10/02/18 05:36 Rouleaux Not Reportable 10/02/18 05:36 Not Reportable 10/02/18 05:36 Not Reportable 10/02/18 05:36 Not Reportable 10/02/18 05:36 Not Reportable 10/02/18 05:36 Hem Pathologist Commnt No 10/02/18 05:36 VBG pH 7.118 (7.320-7.420) L* 10/02/18 01:47 Sodium 137 mmol/L (137-145) 10/02/18 23:36 Potassium 3.5 mmol/L (3.6-5.0) L 10/02/18 23:36 Chloride 108.0 mmol/L (98-107) H 10/02/18 23:36 Carbon Dioxide 17 mmol/L (22-30) L 10/02/18 23:36 16 mmol/L 10/02/18 23:36 BUN 10 mg/dL (7-17) 10/02/18 23:36 0.7 mg/dL (0.7-1.2) 10/02/18 23:36 Estimated GFR > 60 ml/min 10/02/18 23:36 14 % 10/02/18 23:36 Glucose 227 mg/dL (65-100) H 10/02/18 23:36 POC Glucose 80 (70-105) 10/03/18 05:32 Calcium 8.3 mg/dL (8.4-10.2) L 10/02/18 23:36 Phosphorus 2.60 mg/dL (2.5-4.5) D 10/02/18 08:31 Magnesium 2.20 mg/dL (1.7-2.3) 10/02/18 08:31 0.50 mg/dL (0.1-1.2) 10/02/18 01:47 AST 17 units/L (5-40) 10/02/18 01:47 ALT 28 units/L (7-56) 10/02/18 01:47 129 units/L (35-129) 10/02/18 01:47 9.5 g/dL (6.3-8.2) H 10/02/18 01:47 5.1 g/dL (3.9-5) H 10/02/18 01:47 1.2 % 10/02/18 01:47 72 units/L (13-60) H 10/02/18 01:47 TSH 1.300 mlU/mL (0.270-4.200) 10/02/18 03:55 Free T4 1.12 ng/dL (0.76-1.46) 10/02/18 03:55 6.8 ug/dL (4.0-12.0) 10/02/18 03:55 HCG, Qual Negative (Negative) 10/02/18 01:47 Straw (Yellow) 10/02/18 04:35 Clear (Clear) 10/02/18 04:35 5.0 (5.0-7.0) 10/02/18 04:35 Ur Specific [place] 1.018 (1.003-1.030) 10/02/18 04:35 30 mg/dl mg/dL (Negative) 10/02/18 04:35 >=500 mg/dL (Negative) 10/02/18 04:35 80 mg/dL (Negative) 10/02/18 04:35 Sm (Negative) 10/02/18 04:35 Neg (Negative) 10/02/18 04:35 Neg (Negative) 10/02/18 04:35 < 2.0 mg/dL (<2.0) 10/02/18 04:35 Ur Leukocyte Esterase Neg (Negative) 10/02/18 04:35 2.0 /HPF (0.0-6.0) 10/02/18 04:35 3.0 /HPF (0.0-6.0) 10/02/18 04:35 U Epithel Cells (Auto) 2.0 /HPF (0-13.0) 10/02/18 04:35 Few /HPF 10/02/18 04:35 Urine HCG, Qual Negative (Negative) 10/02/18 04:35 Active Medications - Current Medications Current Medications: Generic Name Dose Route Start Last Admin Trade Name Shivani PRN Reason Stop Dose Admin Acetaminophen 650 mg 10/02/18 03:19 Tylenol PO Q4H PRN Pain MILD(1-3)/Fever >100.5/ANN Enoxaparin Sodium 40 mg 10/02/18 10:00 10/03/18 10:00 Lovenox SUB-Q 40 mg QDAY@1000 MARQUITA Administration Sodium Chloride 1,000 mls @ 125 mls/hr 10/02/18 23:00 10/03/18 06:21 Nacl 0.9% 1000 Ml IV 125 mls/hr DIRECT MARQUITA Administration Insulin Glargine 15 units 10/03/18 22:00 Lantus SUB-Q HS MARQUITA Insulin Human Lispro 0 unit 10/03/18 11:30 Humalog SUB-Q AC [facility] Protocol Insulin Human Regular 0 units 10/03/18 22:00 Humulin R SUB-Q QHS [facility] Protocol Metoclopramide HCl 10 mg 10/02/18 12:36 Reglan IV Q6H PRN Nausea And Vomiting Morphine Sulfate 2 mg 10/02/18 03:19 Morphine IV 10/03/18 23:59 Q4H PRN Pain, Moderate (4-6) Ondansetron HCl 4 mg 10/02/18 12:36 Zofran IV Q4H PRN Nausea And Vomiting Promethazine HCl 25 mg 10/02/18 12:36 Phenergan OR Q6H PRN Nausea And Vomiting Sodium Chloride 10 ml 10/02/18 10:00 10/03/18 10:00 Sodium Chloride Flush Syringe 10 Ml IV 10 ml BID MARQUITA Administration Sodium Chloride 10 ml 10/02/18 03:19 Sodium Chloride Flush Syringe 10 Ml IV PRN PRN LINE FLUSH Nutrition/Malnutrition Assess - Dietary Evaluation Nutrition/Malnutrition Findings: Nutrition Notes Start: 10/02/18 14:18 Freq: Status: Active Protocol: Document 10/02/18 14:18 JAVIER (Rec: 10/02/18 14:27 [id number]) Nutrition Notes Need for Assessment generated from: MD Order,Education Initial or Follow up Assessment Current Diagnosis Diabetes Other Pertinent Diagnosis DKA Current Diet NPO Labs/Tests Reviewed Pertinent Medications Insulin gtt Height 5 ft 7 in Weight 72.6 kg [place] Body Weight (kg) 61.36 BMI 25.0 Subjective/Other Information RD consulted for diet education. Pr diagnosed with Type 1 DM at age of 7. She checks BS 4-6 times daily. Takes humalog and long-acting insulin at night. She visits the pneumatic jack operator every three months. Latest A1C is 8 , however, she has been working to improve this number . Pt knows how to count CHO and recognize food sources of CHO. She denies the need for diet education at this time. Burn Absent Trauma Absent #1 Nutrition Diagnosis Inadequate oral intake Etiology DKA As Evidenced by Signs and Symptoms pt NPO Is patient on ventilator? No Is Patient Ambulatory and/or Out of Bed Yes REE-([place] Jeor-ambulatory/OOB) [ 1992.719 [id number]] Calculation Used for Recommendations [place] Je[facility] Additional Notes Pro needs: 1.2-2g/k-145g/ day Fluids 1ml/kcal Nutrition Intervention Change Diet Order: Advance diet to Consistent CHO when medically feasible Goal #1 Diet advancement to meet nutrient needs Anticipated Discharge Needs: Continue CHO controlled diet Follow-Up By: 10/05/18 Additional Comments F/U: diet advancement
[2018-10-03 14:25] LABS: BUN/Creatinine Ratio 15; Blood Urea Nitrogen 9 mg/dL (7-17); Calcium 8.5 mg/dL (8.4-10.2)
[2018-10-03 14:26] LABS: Hemolysis Index 69
--- NOTE | 2018-10-03 15:04 | Event Note ---
Date: 10/03/18 Note anion gap closed, off insulin drip, and plans to transfer out of ICU. Will sign off given no active pulmonary issues. Please call us with questions or new issues.
[2018-10-03] MEDS ORDERED: SODIUM PHOSPHATE 45 MMOL in NACL 0.9% 500 ML 500 ML IV ONE (20:04)
[2018-10-03] MEDS ORDERED: HumuLIN R SUB-Q SCH (22:00)
[2018-10-04] MEDS: HumaLOG SUB-Q SCH ×2 (08:42→13:45)
[2018-10-04] MEDS: LOVENOX SUB-Q SCH (10:41)
[2018-10-04] MEDS: SODIUM CHLORIDE FLUSH SYRINGE 10 ML IV SCH (10:42)
[2018-10-04] MEDS: NACL 0.9% 1000 ML 1,000 ML IV SCH (11:51)
[2018-10-04 12:09] VITALS: BP 115/85
--- NOTE | 2018-10-04 13:22 | Discharge Summary ---
Providers - Providers Date of Admission: 10/02/18 03:19 Attending physician: MIL BRAMBILA MD 10/02/18 03:20 Consult to Dietitian/Nutrition [CONS] Routine Physician Instructions: Reason For Exam: DKA Reason for Consult: Nutrition Recommendations Reason for Consult: Diet education 10/02/18 09:25 Consult to Physician [CONS] Stat Comment: Consulting Provider: RENETTA BISHOP Physician Instructions: Reason For Exam: CCU [facility] Condition: Serious Hospital course: 17-year-old woman with history of type 1 diabetes who presents with nausea vomiting who was admitted for DKA chest x-ray; no acute findings Diagnosis DKA Intractable nausea vomiting SIRS Hyperkalemia Hypotension Dehydration. -Non-adherence insulins Plan She was treated with IV fluids, insulin drip. -She was counseled on improved adherence of insulins, preventative health counseling was performed for over 17 minutes -She was treated with antiemetics as needed. Nausea and vomiting resolved -Electrolytes were replaced, patient was transitioned to subcutaneous insulin, she did well and subsequently discharged Disposition: DC- TO HOME OR SELFCARE Time spent for discharge: 33 mins Core Measure Documentation - Palliative Care Palliative Care/ Comfort Measures: Not Applicable - Core Measures Any of the following diagnoses?: none Exam - Constitutional Vitals: Temp Pulse Resp BP Pulse Ox 97.8 F 56 L 20 115/85 98 10/04/18 11:47 10/04/18 11:47 10/04/18 11:47 10/04/18 11:47 10/04/18 11:47 General appearance: Present: no acute distress, well-nourished - EENT Eyes: Present: PERRL ENT: hearing intact, clear oral mucosa - Neck Neck: Present: supple, normal ROM - Respiratory Respiratory effort: normal Respiratory: bilateral: CTA - Cardiovascular Heart Sounds: Present: S1 & S2. Absent: rub, click - Extremities Extremities: pulses symmetrical, No edema Peripheral Pulses: within normal limits - Abdominal General gastrointestinal: Present: soft, non-tender, non-distended, normal bowel sounds Female genitourinary: Present: normal - Integumentary Integumentary: Present: clear, warm, dry - Musculoskeletal Musculoskeletal: gait normal, strength equal bilaterally - Psychiatric Psychiatric: appropriate mood/affect, intact judgment & insight - Neurologic Neurologic: CNII-XII intact, moves all extremities Plan Follow up with: [facility] [place] [facility] SOFI [Primary Care Provider] - 7 Days Prescriptions: Insulin Glargine,Hum.rec.anlog [Machelle Mercado U-100] 17 unit SQ QDAY #5 insuln.pen
== END 2018-10-04 14:25 | disposition home or self-care (01) | DRG 638 ==
LOC: ED 01:20 → CC1 03:19 → 3A 10-03 15:15
PROVIDERS: ADMIT Internal Medicine; ATTEND Internal Medicine
PROC: 3E0234Z Introduction of Serum, Toxoid and Vaccine into Muscle, Percutaneous Approach (ICD-10-PCS; principal; 2018-10-02)
DX: E10.10 Type 1 diabetes mellitus with ketoacidosis without coma (principal); R65.10 Systemic inflammatory response syndrome (SIRS) of non-infectious origin without acute organ dysfunction; E87.1 Hypo-osmolality and hyponatremia; I95.9 Hypotension, unspecified; E87.5 Hyperkalemia; E03.9 Hypothyroidism, unspecified; D72.829 Elevated white blood cell count, unspecified; Z23 Encounter for immunization
CPT/HCPCS: 36415; 71045; 80048; 80053; 81001; 81025; 82805; 82962; 83690; 83735; 84100; 84436; 84439; 84443; 84703; 85007; 85025; 87040; 90732; 93005; 93010; G0378; J1650; J1815; J2405; J3010; J7030; J7040